=== PATIENT | male | born 1950 | race Caucasian/White ===

== ENCOUNTER 2019-12-28 04:25 | Inpatient (IN) | payer MEDICARE, BC ==
[~2019-12-28] VITALS: Ht 167.6 cm; Wt 83.3 kg
[2019-12-28] MEDS ORDERED: TYLENOL 500MG500 MG PO (04:51)
[2019-12-28 04:52] LABS: BASO % 0.4 % (0.0-2.0); EOS # 0.2 (0.0-0.7); EOS % 2.4 % (0-4.0); GRAN # 5.4 (1.4-6.5); GRAN % 70.7 % (42.2-75.2); LYMPH # 1.4 (1.2-3.4); LYMPH % 18.7 % (20.0-51.0); MEAN CELL VOLUME 98 fl (80.0-100.0); MEAN CORPUSCULAR HGB CONC 35 g/dl (33.0-37.0); MEAN PLATELET VOLUME 9.8 fl (7.4-10.4); MONO # 0.6 (0.1-0.6); MONO % 7.3 % (1.7-9.3); PLATELET COUNT 201 K/mm3 (130-400); RED BLOOD COUNT 2.46 M/mm3 (4.20-5.60); REDCELL DISTRIBUTION WIDTH-CV 12.7 % (11.5-14.5)
[2019-12-28] MEDS ORDERED: PROSCAR 5MG5 MG PO (04:52)
[2019-12-28] MEDS ORDERED: DAZIDOX10 MG PO (04:52)
[2019-12-28] MEDS ORDERED: ASPIRIN 32325 MG/TAB PO (04:52)
[2019-12-28] MEDS ORDERED: DITROPAN XL10 MG PO (04:52)
[2019-12-28] MEDS ORDERED: DIOVAN320 MG PO (04:53)
[2019-12-28] MEDS ORDERED: DESYREL 100MG100 MG PO (04:53)
[2019-12-28] MEDS ORDERED: B-121000 MCG PO (04:53)
[2019-12-28] MEDS ORDERED: FLOMAX 0.40.4 MG/CAP PO (04:53)
[2019-12-28 04:58] LABS: HEMATOCRIT 24.2 % (42.0-52.0); HEMOGLOBIN 8.4 g/dl (13.5-18.0); MEAN CORPUSCULAR HEMOGLOBIN 34 pg (27.0-31.0)
[2019-12-28 05:02] LABS: ALANINE AMINOTRANSFERASE 14 U/L (4-49); ALBUMIN 3.2 gm/dL (3.5-5.0); ALKALINE PHOSPHATASE 51 U/L (50-136); ANION GAP 7 mmol/L (7-16); AST,SGOT 30 U/L (15-37); BILIRUBIN,TOTAL 0.7 mg/dL (0.0-1.0); BLOOD UREA NITROGEN 29 mg/dL (9-20); C-REACTIVE PROTEIN 0.7 mg/dL (0.0-0.9); CALCIUM 8.6 mg/dL (8.4-10.2); CARBON DIOXIDE 21 mmol/L (22-30); CHLORIDE 112 mmol/L (98-107); CREATININE, serum 0.97 (0.66-1.25); GLUCOSE 116 mg/dL (74-106); LIPASE 69 U/L (23-300); POTASSIUM 3.7 mmol/L (3.4-5.0); SODIUM 140 mmol/L (137-145); TOTAL PROTEIN 5.8 gm/dL (6.4-8.2)
[2019-12-28 05:21] LABS: TROPONIN-I < 0.012 ng/mL (0.000-0.035)
[2019-12-28 06:27] LABS: COLLECTION METHOD CLEAN CATCH
[2019-12-28 06:49] LABS: MUCOUS Present /lpf; PH 5 (5-8); SQUAMOUS EPITHELIAL None Seen /hpf; URINE APPEARANCE Clear; URINE BACTERIA Rare /hpf; URINE BILIRUBIN Negative (NEGATIVE); URINE BLOOD Negative (NEGATIVE); URINE COLOR Yellow; URINE GLUCOSE Negative (NEGATIVE); URINE KETONE Trace (NEGATIVE); URINE LEUKOCYTE ESTERASE Negative (NEGATIVE); URINE NITRATE Negative (NEGATIVE); URINE PROTEIN(semi-quant) Negative (NEGATIVE); URINE RBC None Seen /hpf; URINE UROBILINOGEN Negative (NEGATIVE)
--- NOTE | 2019-12-28 11:58 | NUR ---
workers compensation specialist met with the patient and his , Cheryl to complete initial intake. The patient lives in [place] with Cheryl. The patient recently had a total hip replacement and was to begin OP PT at [facility] tomorrow, 12/28. The patient has a walker, shower stool, and a bedside commode. The patient is independent with ADLs. The patient's PCP is Dr. Bee and patient receives medications from [id number] with no difficulties. The patient does not have advanced directives in the EMR but states they are complete and designate [place]. The patient plans to return home at discharge and begin OP PT. There are no additional needs at this time.
[2019-12-28 12:30] VITALS: BP 119/72; PULSE 80; TEMP 97.9
[2019-12-28 12:42] LABS: HEMATOCRIT 25.2 % (42.0-52.0); HEMOGLOBIN 8.7 g/dl (13.5-18.0)
[2019-12-28 15:26] VITALS: BP 119/63; PULSE 85; TEMP 98
[2019-12-28 16:27] VITALS: BP 117/70; PULSE 81; TEMP 98.5
--- NOTE | 2019-12-28 16:28 | NUR ---
First visit from the warehouse helper. prayed with patient. No other needs right now.
--- NOTE | 2019-12-28 19:25 | NUR ---
Report received from DARLENE Drew. Pt resting in bed, denies any needs at this time.
[2019-12-28 20:00] VITALS: BP 116/65; PULSE 83; TEMP 98.5
--- NOTE | 2019-12-28 20:13 | NUR ---
Assessment completed. Pt resting in bed. Reports pain 3/10 to right hip/groin area. Declines medication at this time. Rolled up towel placed between knees to ease discomfort per pt's request. Pt denies dizziness at this time. Incision to right hip from recent surgery per pt report, clean, dry, intact. No other abnormal findings noted at this time. IV to left hand clean, dry, intact, LR running at 75 ml/hr.
[2019-12-28 21:30] LABS: HEMATOCRIT 21.3 % (42.0-52.0); HEMOGLOBIN 7.3 g/dl (13.5-18.0)
[2019-12-28 23:51] VITALS: BP 135/73; PULSE 87; TEMP 97.9
[2019-12-29 03:56] VITALS: BP 122/75; PULSE 72; TEMP 98.8
--- NOTE | 2019-12-29 05:11 | NUR ---
Pt lying in bed throughout night, sleeping on and off. Complained of mild pain early in evening to right hip, relieved by scheduled Tylenol and repositioning. No complaints of pain since. IV to left hand infiltrated while infusing LR. Left hand IV and new IV initiated to left forearm. No other concerns throughout shift.
[2019-12-29 08:06] VITALS: BP 123/64; PULSE 78; TEMP 98.6
[2019-12-29 08:43] LABS: CALCIUM 8.5 mg/dL (8.4-10.2); CREATININE, serum 0.93 (0.66-1.25); POTASSIUM 3.4 mmol/L (3.4-5.0)
[2019-12-29 08:47] LABS: BASO % 0.4 % (0.0-2.0); EOS # 0.2 (0.0-0.7); EOS % 3.2 % (0-4.0); GRAN # 5.1 (1.4-6.5); GRAN % 67.9 % (42.2-75.2); LYMPH # 1.5 (1.2-3.4); LYMPH % 20.1 % (20.0-51.0); MEAN CELL VOLUME 99 fl (80.0-100.0); MEAN CORPUSCULAR HGB CONC 34 g/dl (33.0-37.0); MEAN PLATELET VOLUME 9.7 fl (7.4-10.4); MONO # 0.5 (0.1-0.6); MONO % 7.2 % (1.7-9.3); PLATELET COUNT 233 K/mm3 (130-400); RED BLOOD COUNT 2.47 M/mm3 (4.20-5.60); REDCELL DISTRIBUTION WIDTH-CV 13.1 % (11.5-14.5)
[2019-12-29 08:49] LABS: HEMATOCRIT 24.5 % (42.0-52.0); HEMOGLOBIN 8.4 g/dl (13.5-18.0); MEAN CORPUSCULAR HEMOGLOBIN 34 pg (27.0-31.0)
--- NOTE | 2019-12-29 09:18 | NUR ---
Pt awake and alert upon entry, some C/O mild pain at hip surgical site, medications given as scheduled for relief. Shift assessments complete, left Pt call light in reach, bed in lowest position.
[2019-12-29 10:18] LABS: INR 1.1 (0.8-3.0); PROTHROMBIN TIME 12.6 SECONDS (9.7-12.8)
[2019-12-29 11:14] VITALS: BP 118/76; PULSE 72; TEMP 98.2
[2019-12-29 16:39] VITALS: BP 127/71; PULSE 69; TEMP 98.4
[2019-12-29 17:38] LABS: HEMATOCRIT 22.6 % (42.0-52.0); HEMOGLOBIN 7.8 g/dl (13.5-18.0)
--- NOTE | 2019-12-29 18:36 | NUR ---
Pt resting in the room, has C/O discomfort at the hip surgical site, bandage at site changed this afternoon, surgical wound scant dried drainage, well approximated. VS have remained stable.
--- NOTE | 2019-12-29 19:18 | NUR ---
Report received from DARLENE Drew. Pt resting in bed, denies needs at this time.
[2019-12-29 19:41] VITALS: BP 111/66; PULSE 91; TEMP 98.6
--- NOTE | 2019-12-29 22:35 | NUR ---
Assessment completed. Pt reports mild soreness right hip, relieved with repositioning. Denies dizziness at this time. Surgical incision to right hip covered by dressing, clean, dry, intact. Generalized bruising noted over entire right leg, pt reports from fall prior to hospitalization. Left forearm INT intact, flushes easily. Coumadin started per orders.
[2019-12-29 23:57] VITALS: BP 129/85; PULSE 70; TEMP 98.3
[2019-12-30 04:04] VITALS: BP 131/58; PULSE 70; TEMP 98
--- NOTE | 2019-12-30 06:06 | NUR ---
Pt sleeping intermittently throughout night. Uses urinal at bedside independently. No BMs this shift, pt does report gas. Reports of mild pain to right hip relieved by scheduled Tylenol last night, reporting pain again currently but declines PRN medications stating he will wait for scheduled Tylenol this AM.
[2019-12-30 07:18] LABS: INR 1.1 (0.8-3.0)
[2019-12-30 07:21] LABS: MEAN CELL VOLUME 100 fl (80.0-100.0); MEAN CORPUSCULAR HGB CONC 34 g/dl (33.0-37.0); MEAN PLATELET VOLUME 10.4 fl (7.4-10.4); PLATELET COUNT 227 K/mm3 (130-400); RED BLOOD COUNT 2.34 M/mm3 (4.20-5.60); REDCELL DISTRIBUTION WIDTH-CV 13.1 % (11.5-14.5)
[2019-12-30 07:30] LABS: CALCIUM 8.4 mg/dL (8.4-10.2); CREATININE, serum 0.99 (0.66-1.25); POTASSIUM 3.4 mmol/L (3.4-5.0)
[2019-12-30 07:33] LABS: HEMATOCRIT 23.3 % (42.0-52.0); MEAN CORPUSCULAR HEMOGLOBIN 34 pg (27.0-31.0)
[2019-12-30 07:34] VITALS: BP 124/76; PULSE 76; TEMP 97.9
[2019-12-30 08:47] LABS: BAND 8 % (0-10); EOSINOPHIL 2 % (0-4); LYMPHOCYTE 30 % (20.0-51.0); METAMYELOCYTE 1 % (0-0); NEUTROPHILS 54 % (42.0-75.2); NUCLEATED RED BLOOD CELL 1 (0-6); PLATELET ESTIMATE NORMAL (NORMAL)
[2019-12-30] MEDS ORDERED: COUMADIN 5MG5 MG/TAB PO (09:32)
[2019-12-30] MEDS ORDERED: PROTONIX 40MG T40 MG PO (09:33)
--- NOTE | 2019-12-30 09:38 | NUR ---
The patient will discharge home today, 12/29. Senior Director Creative Services met with the patient to revisit the discharge plan of home with OP PT. These appointments are already set up. No need for OP PT orders. SW discussed possibly having HHS. The patient declined. The patient has an OP PT appointment 12/30 at 10:30. There are no additional needs at this time.
[2019-12-30 12:04] VITALS: BP 127/73; PULSE 88; TEMP 98.1
--- NOTE | 2019-12-30 15:50 | NUR ---
PATIENT DISHCARGED HOME WITH AT 1430 VIA PRIVATE VEHICLE. WAS ASSISTED TO VEHICLE BY VIA YANDY STAFF VIA WHEELCHAIR. PERSONAL BELONGINGS HOME WITH PATIGRACIELA. REVIEWED DISCHARGE INSTRUCTIONS WITH VERBALIZED UNDERSTANDING.
== END 2019-12-30 14:30 | disposition home or self-care (01) | DRG 378 ==
LOC: COL.ER 04:25 → MEDICAL 05:07
PROVIDERS: Emergency Medicine; Internal Medicine Gastroenterology; Physician Assistant; ADMIT Hospitalist
PROC: 0DB78ZX Excision of Stomach, Pylorus, Via Natural or Artificial Opening Endoscopic, Diagnostic (ICD-10-PCS; principal; 2019-12-28 13:00)
DX: K25.4 Chronic or unspecified gastric ulcer with hemorrhage (principal); D62 Acute posthemorrhagic anemia; E87.2 Acidosis; K29.81 Duodenitis with bleeding; K22.4 Dyskinesia of esophagus; I10 Essential (primary) hypertension; K44.9 Diaphragmatic hernia without obstruction or gangrene; N40.0 Benign prostatic hyperplasia without lower urinary tract symptoms; T39.395A Adverse effect of other nonsteroidal anti-inflammatory drugs [NSAID], initial encounter; S80.11XA Contusion of right lower leg, initial encounter; W19.XXXA Unspecified fall, initial encounter; R23.8 Other skin changes; Y92.008 Other place in unspecified non-institutional (private) residence as the place of occurrence of the external cause; E87.8 Other disorders of electrolyte and fluid balance, not elsewhere classified; R55 Syncope and collapse; Z79.82 Long term (current) use of aspirin; Z79.891 Long term (current) use of opiate analgesic; Z96.641 Presence of right artificial hip joint; Z87.891 Personal history of nicotine dependence
CPT/HCPCS: 99222-AI; 99232-AI; 99239; C9113; J2704; J7030; J7120

== ENCOUNTER → 2021-06-27 | Outpatient (CLI) | payer MEDICARE, BC ==
[~2021-06-27] MED LIST: ASPIRIN 32325 MG/TAB PO; B-121000 MCG PO; COUMADIN 5MG5 MG/TAB PO; DAZIDOX10 MG PO; DESYREL 100MG100 MG PO; DIOVAN320 MG PO; DITROPAN XL10 MG PO; FLOMAX 0.40.4 MG/CAP PO; PROSCAR 5MG5 MG PO; PROTONIX 40MG T40 MG PO; TYLENOL 500MG500 MG PO
== END ==
LOC: COL.RAD 10:35
DX: R91.1 Solitary pulmonary nodule (principal); N28.89 Other specified disorders of kidney and ureter
CPT/HCPCS: Q9967

== ENCOUNTER → 2021-07-06 | Outpatient (CLI) | payer MEDICARE, BC | LOC: COL.RAD 12:15 | DX: N28.89 Other specified disorders of kidney and ureter (principal) | CPT/HCPCS: Q9967 ==

== ENCOUNTER 2021-07-11 11:32 | Inpatient (IN) | payer MEDICARE, BC ==
[~2021-07-11] VITALS: Ht 165.1 cm; Wt 80.6 kg
[2021-07-25] VITALS (9 sets, daily range): BP systolic 127–162; BP diastolic 71–94; PULSE 54–84; TEMP 97.3–98.6
[2021-07-25] MEDS ORDERED: DIOVAN320 MG PO (05:57)
[2021-07-25] MEDS ORDERED: KAPSPARGO SPRIN50 MG PO (05:57)
--- NOTE | 2021-07-25 07:00 | NUR ---
PT AMBULATED TO BAY 8 ACCOMPANIED BY . VS OBTAINED. CONENT SIGNED. 18G IV INFUSING LR IN L WRIST. ASSESSMENT COMPLETED. ORIENTED PT TO ROOM AND CALL LIGHT. VERBALIZED UNDERSTANDING. CALL LIGHT WITHIN REACH. WILL CONTINUE TO MONITOR PT.
--- NOTE | 2021-07-25 10:30 | NUR ---
PATIENT IS ORIENTED AND A LITTLE EMOTIONAL POST OP. PATIENT CRIED WHEN HE SAW HIS WHO IS NOW AT BEDSIDE. VSS. 02 @ 3L PER NC WITH SATS IN MID 90'S. NO C/O PAIN OR NAUSEA. ABD LAP SITES X6 ARE WELL APPROXIMATED AND ENTRY LEVEL AUTOMOTIVE TECHNICIAN. ABD MIDLINE IS WELL APPROXIMATED AND ZACH. FRANK TO DD WITH SMALL AMOUNTS OF CLEAR YELLOW URINE. IV FLUIDS INFUSING INTO LEFT WRIST. LIQUIDS AT BEDSIDE. HEAD TO TOE ASSESSMENT COMPLETE. ORIENTED TO ROOM AND ERAS PROTOCOL. NO OTHER NEEDS AT THIS TIME. CALL LIGHT IN REACH.
--- NOTE | 2021-07-25 16:50 | NUR ---
PATIENT HAS WENT FOR TWO WALKS POST OP AND TOLERATED ACTIVITY WELL. GAIT STEADY.
--- NOTE | 2021-07-25 20:00 | NUR ---
Assessment complete. A&Ox3. Denies pain/nausea/shortness of breath. VS have been stable. Tolerating diet. LR@125ml/hr to left wrist 18g infusing without difficulty. Lap sites x6/midline incision-edges well approximated-no drainage noted. Cerrato cath with clear yellow urine. SCDs bilat. IS at bedside. Encouraged use q1h x10 while awake. Verbalizes understanding. Has been up out of bed and ambulated several times. Plan of care discussed for this shift to include meds/IV fluids/pain control as needed/calling for questions/concerns. Verbalizes understanding. Call light in reach. Will monitor.
[2021-07-26 00:14] VITALS: BP 133/103; PULSE 55; TEMP 98
[2021-07-26 00:48] VITALS: BP 135/65
--- NOTE | 2021-07-26 00:48 | NUR ---
Noted to have a blood pressure of 130s/100s during vitals review. Taking manually by this nurse at this time. 135/65.
--- NOTE | 2021-07-26 04:11 | NUR ---
Patient c/o feeling like the root cath is not draining and his bladder is spasming. Checked root cath and is draining well. Bladder scanned to ensure bladder was empty and noted to have less than 50mls. Spoke with Dr. Roland and Levsin ordered. Will monitor.
[2021-07-26 04:14] VITALS: BP 135/73; PULSE 57; TEMP 98.1
--- NOTE | 2021-07-26 05:30 | NUR ---
Pt states Levsin did help with the bladder spasms. Did not rest at all this shift. Was very teary eyed off and on. IV fluids infusing-LR@125mls/hr to left wrist IV without difficulty. Cerrato cath with clear yellow urine. Denied pain except occasional bladder spasms. Scheduled tylenol adequate pain control. Tolerated PO. IS at bedside with instruction on use. SCDs bilat. Did ambulate several times yesterday and tolerated well. Denies current needs. Call light in reach. Will monitor.
[2021-07-26 06:02] LABS: HEMATOCRIT 39.7 % (42.0-52.0); HEMOGLOBIN 14.1 g/dl (13.5-18.0)
[2021-07-26 06:27] LABS: CALCIUM 8.5 mg/dL (8.4-10.2); CREATININE, serum 1.83 mg/dL (0.72-1.25)
[2021-07-26 07:38] VITALS: BP 124/66; PULSE 65; TEMP 97.7
--- NOTE | 2021-07-26 10:15 | NUR ---
FRANK CATHETER HAS BEEN DCED ET IV SALINE LOCKED. PT HAS SOME PAIN WITH CATHETER REMOVAL. LAP SITES ET MIDLINE INCISION EDGES ARE WELL APPROXIMATED, ZACH ET BRUISED. PT TOLERATING FOOD ET PO LIQUIDS WELL BUT STATES THAT HE HAS NOT YET PASSED GAS.
--- NOTE | 2021-07-26 11:09 | NUR ---
PT HAS AMBULATED IN HALLS WITH SBA ET HAS PARTIALLY DRESSED SELF IN ROOM. PT STATES THAT HE HAS OCCASIONAL MILD FLANK PAIN. DENIES ANY NAUSEA ET EATS WITHOUT PROBLEMS.
[2021-07-26 11:19] VITALS: BP 137/73; PULSE 68; TEMP 98.1
--- NOTE | 2021-07-26 11:36 | NUR ---
wire web worker met with patient to discuss discharge plan. Patient currently lives at home with his Cheryl ([phone]). He is independent with his ADL's and does not utilize any DME to assist with mobility. Patient has no home oxygen needs. PCP is Dr. Bee and he uses [email or web address] for perscriptions with no cost difficulty. Patient does have a DPOA-HC lisiting his Cheryl as his primary agent and his two sons Robert and Ottoniel as secondary agents. He provides this SW with copies of both his DPOA-HC and Living Will. Copies stickered and placed in his chart. Patient expresses that he his hopeful of being able to discharge home today. Discharge plan: Home with spouse.
--- NOTE | 2021-07-26 11:40 | NUR ---
PT REPORTS URINATING ABOUT 75 ML BUT HAS ALREADY DUMPED HIS URINAL. PT INSTRUCTED TO LET NURSING STAFF DUMP URINAL SO THAT IT CAN OBSERVED ET MEASURED. PT VERBALIZES UNDERSTANDING.
--- NOTE | 2021-07-26 12:38 | NUR ---
First visit from the steam distribution supervisor. No needs right now.
--- NOTE | 2021-07-26 14:07 | NUR ---
PT DISCHARGED TO HOME WITH SPOUSE. IV REMOVED, CATHETER TIP INTACT. DISCHARGE INSTRUCTIONS ET EDUCATION GIVEN. PT ET SPOUSE DENY QUESTIONS. PT IS ESCORTED OUT VIA WC PUSHED BY EDD BREWER TO SPOUSE'S CAR.
== END 2021-07-26 14:06 | disposition home or self-care (01) | DRG 658 ==
LOC: SURG 07-25 05:26 → INPTSU 07-25 05:26 → SURG 07-25 07:30
PROVIDERS: ADMIT Urology
PROC: 8E0W3CZ Robotic Assisted Procedure of Trunk Region, Percutaneous Approach (ICD-10-PCS; 2021-07-25)
PROC: 0TT04ZZ Resection of Right Kidney, Percutaneous Endoscopic Approach (ICD-10-PCS; principal; 2021-07-25 07:30)
DX: C64.1 Malignant neoplasm of right kidney, except renal pelvis (principal); C61 Malignant neoplasm of prostate; N28.89 Other specified disorders of kidney and ureter; M19.90 Unspecified osteoarthritis, unspecified site; N40.0 Benign prostatic hyperplasia without lower urinary tract symptoms; R91.8 Other nonspecific abnormal finding of lung field; G89.29 Other chronic pain; M25.559 Pain in unspecified hip; M54.9 Dorsalgia, unspecified; Z79.82 Long term (current) use of aspirin; Z88.5 Allergy status to narcotic agent
CPT/HCPCS: A4314; A9284; J0690; J1100; J1170; J2250; J2405; J2704; J2795; J3010; J7120

== ENCOUNTER → 2021-07-14 | Outpatient (CLI) | payer MEDICARE, BC | LOC: COL.RAD 08:59 | DX: C64.1 Malignant neoplasm of right kidney, except renal pelvis (principal); C61 Malignant neoplasm of prostate | CPT/HCPCS: A9503 ==

== ENCOUNTER 2021-08-30 06:40 | Outpatient (CLI) | payer MEDICARE, BC ==
[~2021-08-30] VITALS: Ht 165.1 cm; Wt 78.2 kg
[2021-08-30] VITALS (22 sets, daily range): BP systolic 115–167; BP diastolic 67–120; PULSE 40–68; TEMP 97.9
[~2021-08-30 06:40] MED LIST changes: +KAPSPARGO SPRIN50 MG PO
--- NOTE | 2021-08-30 07:50 | NUR ---
Pt to ct per ambulation. Monitors applied and O2 on at 2l/nc.
--- NOTE | 2021-08-30 08:08 | NUR ---
Pt repositioned to right side down. Using pillows to get pt as comfortable as possible.
--- NOTE | 2021-08-30 08:35 | NUR ---
Specimens obtained by Dr Paula and placed in formalin. Specimen labeled. Pt back in to scanner to check for pneumo. 0839 Pt reports he is feeling nauseated. Pt monitor shows SB in the 30's. Pt alert and talking to nurse. Pulse is correlating to monitor for heart rate. Pt repositioned onto his back and arm brought down to chest. 0845 Pt reports he is feeling better. Continue to monitor. Pt reports he thought he was close to passing out. Heart rate increasing to 40-50's.
--- NOTE | 2021-08-30 08:47 | NUR ---
Pt reports he is feeling much better. Pt to radiology exam room for chest xray. Tech informed will take xray in EU.
--- NOTE | 2021-08-30 10:25 | NUR ---
Report given to DARLENE Rangel who will take over cares of pt. Small shadowing noted to bandaid. Pt remains free of complaints. Call light in reach.
--- NOTE | 2021-08-30 12:10 | NUR ---
pt transported to exit by this nurse via wheelchair.
== END 2021-08-30 13:05 ==
LOC: COL.RAD 06:40
DX: R91.1 Solitary pulmonary nodule (principal); Z85.46 Personal history of malignant neoplasm of prostate; Z85.528 Personal history of other malignant neoplasm of kidney
CPT/HCPCS: 32106

== ENCOUNTER → 2021-10-31 | Outpatient (CLI) | payer MEDICARE, BC | LOC: COL.RAD 07:32 | DX: R91.1 Solitary pulmonary nodule (principal); Z90.5 Acquired absence of kidney; Z85.528 Personal history of other malignant neoplasm of kidney | CPT/HCPCS: Q9967 ==

== ENCOUNTER → 2022-06-07 | Outpatient (CLI) | payer MEDICARE, BC | LOC: COL.RAD 05-16 11:00 | DX: Z08 Encounter for follow-up examination after completed treatment for malignant neoplasm (principal); Z85.528 Personal history of other malignant neoplasm of kidney | CPT/HCPCS: Q9967 ==

== ENCOUNTER → 2023-06-19 | Outpatient (CLI) | payer MEDICARE, BC ==
[~2023-06-19] MED LIST changes: +NORCO 325 MG-51 TAB PO; +TOPROL XL100 MG PO
[2023-06-19 22:16] LABS: BAND 7 % (0-10); EOSINOPHIL 1 % (0-4); LYMPHOCYTE 16 % (20.0-51.0); NEUTROPHILS 74 % (42.0-75.2)
[2023-06-19 22:18] LABS: ANISOCYTOSIS 1+; PLATELET ESTIMATE NORMAL (NORMAL)
== END ==
LOC: ZCOL.LAB 21:10
PROVIDERS: Family Medicine
DX: C61 Malignant neoplasm of prostate (principal); C64.1 Malignant neoplasm of right kidney, except renal pelvis

== ENCOUNTER → 2023-06-21 | Outpatient (CLI) | payer MEDICARE, BC ==
[~2023-06-21] MED LIST changes: +Barium Sulfate 2% Oral Susp 450 ML X 2 BOTTLES PO SCH; +Iodixanol-320 100 ML BOTTLE IV ONE; +NS 100 ML IV SCH
== END ==
LOC: CANSCHCLI → COL.RAD 12:11
DX: C61 Malignant neoplasm of prostate (principal); R91.8 Other nonspecific abnormal finding of lung field; Z85.528 Personal history of other malignant neoplasm of kidney
CPT/HCPCS: Q9967

== ENCOUNTER → 2023-12-20 | Outpatient (CLI) | payer MEDICARE, BC ==
[~2023-12-20] MED LIST changes: -Barium Sulfate 2% Oral Susp 450 ML X 2 BOTTLES PO SCH; -Iodixanol-320 100 ML BOTTLE IV ONE; -NS 100 ML IV SCH
[2023-12-20 13:31] LABS: BASOPHIL 2 % (0-2); EOSINOPHIL 1 % (0-4); LYMPHOCYTE 18 % (20.0-51.0); NEUTROPHILS 75 % (42.0-75.2)
== END ==
LOC: ZCOL.LAB 11:56
PROVIDERS: Family Medicine
DX: C61 Malignant neoplasm of prostate (principal)